=== PATIENT | female | born 1985 | race Caucasian/White ===

== ENCOUNTER 2017-12-14 07:01 | Inpatient (IN) | payer BC ==
[2017-12-14 07:45] VITALS: BMI 24.9
[2017-12-14] MEDS ORDERED: Lidocaine 1% (PF) 30 ML VIAL SC PRN (08:13)
[2017-12-14] MEDS ORDERED: Ondansetron HCl/PF 4 MG/2 ML Vial IVP PRN ×2 (08:13→18:49)
[2017-12-14] MEDS ORDERED: Butorphanol Tartrate 1 MG/ML VIAL SLOW IVP PRN (08:13)
[2017-12-14] MEDS ORDERED: Ibuprofen 800 MG TAB PO PRN (08:13)
[2017-12-14] MEDS ORDERED: HYDROcodone/Acetaminophen 5/325 mg Tablet PO PRN ×2 (08:13)
[2017-12-14] MEDS ORDERED: Promethazine HCl 25 MG/ML VIAL IM PRN (08:13)
[2017-12-14] MEDS ORDERED: Acetaminophen 500 MG TAB PO PRN (08:13)
[2017-12-14] MEDS ORDERED: NS w/ Oxytocin 10 units 500 ML IV SCH (08:15)
[2017-12-14] MEDS ORDERED: Lactated Ringer's 1,000 ML IV SCH ×2 (08:15)
[2017-12-14 09:18] LABS: Hemoglobin 12.6 g/dL (12.0-16.0); Mean Corpuscular HGB CONC 35.9 g/dL (32.0-36.0); Mean Corpuscular Hemoglobin 33.7 pg (27.0-31.0); Mean Corpuscular Volume 93.8 fl (81.0-99.0); Mean Platelet Volume 8.5 fL (7.4-10.4); Platelet Count 164 thou/uL (130-400); RBC Distribution Width 12.1 % (11.5-14.5); Red Blood Cell (RBC) Count 3.73 mill/uL (4.20-5.40); White Blood Cell (WBC) Count 8.9 thou/uL (4.8-10.8)
[2017-12-14 09:55] LABS: Syphilis Antibody Nonreactive (Nonreactive); Syphilis Antibody Index 0.05 S/CO (<1.00 Non-Reactive)
[2017-12-14 09:56] LABS: HBSAg Index 0.13 S/CO (0-0.99); Hep B Surf Ag Non-Reactive S/CO (NonReactive)
--- NOTE | 2017-12-14 13:03 | PDOC.LDHP ---
Labor and Delivery H&P Chief complaint: contractions HPI: Contractions started this AM. Current gestational age (weeks): 40 Due date: 12/11/17 Dating criteria: last menstrual period, first trimester ultrasound Grav: 3 Para: 2 Current complications: none Abnormal US findings: No Current medications: pre- vitamins Previous surgical history: none Allergies/Adverse Reactions: Allergies Allergy/AdvReac Type Severity Reaction Status Date / Time No Known Allergies Allergy Verified 12/14/17 07:37 Social history: none - Physical Exam Vital signs reviewed and normal: yes General: breathing through contractions Heart: RRR Lungs: CTAB Abdomen: gravid Extremeties: no edema FHT: category 1 - Vaginal Exam cm dilated: 4 Effacement: 90% Station: -2 - OB Labs Blood type: AB RH: positive Antibody Screen: negative HIV: negative RPR: negative HEPSAg: negative 1 hour GCT: negative GBS: negative Rubella: immune - Assessment L&D Assessment: term patient in labor - Plan Plan: admit to L&D, informed consent obtained, anesthesia consult for pain management
--- NOTE | 2017-12-14 13:55 | PDOC.EVN ---
Event Note - Event Note Event Note: Breathing with UCs. Asked to AROM by Dr. Sy. SVE= 7/c/0, vtx. AROM- clear. FHTs reassuring. UCs q 3 mins. Watch progress.
[2017-12-14] MEDS: NS / Oxytocin 40 units/1000ml 1,000 ML IV PRN ×2 (16:15→18:09)
--- NOTE | 2017-12-14 16:26 | PDOC.OPDEL ---
OB Operative/Delivery Note Delivery Dr/Surgeon: Yossi Pre-Delivery Diagnosis: active labor Procedure/Post Delivery Dx: spontaneous vaginal delivery Weeks gestation: 40 - Findings A Sex: female - 1 min: 8 - 5 min: 9 - Additional Findings/Plan Placenta delivered: spontaneous Repaired Obstetrical Laceration: none Estimated blood loss: 250ml Compilations/Other Findings: loose nuchal Post delivery plan: routine recovery
[2017-12-14] MEDS ORDERED: Bisacodyl 10 MG SUPP PR PRN (18:49)
[2017-12-14] MEDS ORDERED: Preparation H Ointment 28 GM TUBE PR PRN (18:49)
[2017-12-14] MEDS ORDERED: NS / Oxytocin 40 units/1000ml 1,000 ML IV SCH (18:49)
[2017-12-14] MEDS ORDERED: Milk Of Magnesia 30 ML UDCUP PO PRN (18:49)
[2017-12-14] MEDS ORDERED: Lanolin Ointment 7 GM TUBE TOP PRN (18:49)
[2017-12-14] MEDS ORDERED: Benzocaine/Menthol 20-0.5% 60 ML CAN TOP PRN (18:49)
[2017-12-14] MEDS ORDERED: Acetaminophen/Codeine 30-300mg Tablet PO PRN ×2 (18:49)
[2017-12-14] MEDS ORDERED: Ferrous Sulfate 325 MG TAB PO SCH (19:00)
[2017-12-14] MEDS ORDERED: Adacel (T-DAP) 0.5 ML VIAL IM ONE (20:00)
[2017-12-14] MEDS: Docusate Calcium (SURFAK) 240 MG CAP PO SCH (22:03)
[2017-12-15] MEDS: Ibuprofen 800 MG TAB PO SCH ×3 (00:38→13:48)
[2017-12-15 04:55] LABS: Hemoglobin 11.7 g/dL (12.0-16.0); Mean Corpuscular HGB CONC 35.2 g/dL (32.0-36.0); Mean Corpuscular Hemoglobin 33.7 pg (27.0-31.0); Mean Corpuscular Volume 95.5 fl (81.0-99.0); Mean Platelet Volume 8.1 fL (7.4-10.4); Platelet Count 150 thou/uL (130-400); RBC Distribution Width 12.2 % (11.5-14.5); Red Blood Cell (RBC) Count 3.49 mill/uL (4.20-5.40); White Blood Cell (WBC) Count 11.5 thou/uL (4.8-10.8)
[2017-12-15] MEDS: Ferrous Sulfate 325 MG TAB PO SCH ×2 (08:00→16:19)
[2017-12-15] MEDS: Docusate Calcium (SURFAK) 240 MG CAP PO SCH (08:28)
[2017-12-15] MEDS ORDERED: Prenatal Vitamin 1 TAB PO SCH (09:00)
--- NOTE | 2017-12-15 09:07 | PDOC.PP ---
Post Progress Note Post Day #: 1 Subjective: min lochia, nursing well, no pain PO intake tolerated: yes Flatus: yes Ambulation: yes Vital Signs (12 hours) Temp Pulse Resp BP 12/15/17 07:53 97.7 F 76 20 113/73 12/15/17 04:00 98.3 F 89 18 12/15/17 01:00 98.3 F 89 18 115/56 L 12/15/17 00:00 98.5 F 72 18 12/14/17 22:58 98.5 F 72 18 Weight Weight 145 lb - Physical Examination General: NAD Respiratory: non-labored breathing Abdominal: no distention Fundus firm & at: below umb Skin: no rash Neurological: no gross focal deficits Psychiatric: A&Ox3, normal affect Result Diagrams: 12/15/17 04:41 Additional Labs: Post Labs Blood Type AB POSITIVE 12/14/17 09:00 Hep Bs Antigen Non-Reactive S/CO (NonReactive) 12/14/17 09:00 (1) 40 weeks gestation of Code(s): Z3A.40 - 40 WEEKS GESTATION OF Status: Acute (2) Vaginal delivery Code(s): O80 - ENCOUNTER FOR FULL-TERM UNCOMPLICATED DELIVERY Status: Acute - Assessment/Plan A/P: PPD1 doing well, desires DC home today if baby DC'd.
[2017-12-15 11:17] VITALS: BP 115/69; TEMP 99
== END 2017-12-15 18:30 | disposition home or self-care (01) | DRG 775 ==
LOC: L&D/OP 07:01 → L&D 09:27 → 3SW 18:50
PROVIDERS: ADMIT Obstetrics & Gynecology; ATTEND Obstetrics & Gynecology
PROC: 10E0XZZ Delivery of Products of Conception, External Approach (ICD-10-PCS; principal; 2017-12-14)
PROC: 10907ZC Drainage of Amniotic Fluid, Therapeutic from Products of Conception, Via Natural or Artificial Opening (ICD-10-PCS; 2017-12-14)
DX: O69.81X0 Labor and delivery complicated by cord around neck, without compression, not applicable or unspecified (principal); Z37.0 Single live birth; Z3A.40 40 weeks gestation of pregnancy
CPT/HCPCS: 36415; 85027; 86780; 86850; 86900; 86901; 87340; 99285; J2001